=== PATIENT | male | born 1975 | race Caucasian/White ===

== ENCOUNTER 2017-04-17 14:44 | Emergency (ER) | payer SELFPAY ==
[2017-04-17] MEDS ORDERED: Dexamethasone 10 MG/ML VIAL ONE (15:36)
== END 2017-04-17 15:59 | disposition home or self-care (01) ==
LOC: ERS 14:44
DX: J02.0 Streptococcal pharyngitis (principal); F17.210 Nicotine dependence, cigarettes, uncomplicated
CPT/HCPCS: 96372; J1100